=== PATIENT | male | born 1975 | race Caucasian/White ===

== ENCOUNTER 2021-08-08 11:34 | Emergency (ER) | payer BC ==
[2021-08-08] MEDS ORDERED: Sodium Chloride 0.9% 10 ML Syringe FLUSH PRN (12:01)
[2021-08-08] MEDS ORDERED: Ondansetron 4 MG/2 ML SDV IVPUSH ONE (12:01)
--- NOTE | 2021-08-08 12:10 | EDM.PDOC ---
ED HPI GENERAL MEDICAL PROBLEM - General Chief Complaint: Abdominal Pain Stated Complaint: ABDOMINAL PAIN Time Seen by Provider: 08/08/21 11:43 Source of Information: Reports: Patient, RN Notes Reviewed, Significant Other History Limitations: Reports: No Limitations - History of Present Illness INITIAL COMMENTS - FREE TEXT/NARRATIVE: Patient is a 45-year-old male who presents to the ER for evaluation of his abdominal pain/discomfort. States that this is been ongoing for the last few days, it seems to kind to come and go. States that he has some abdominal discomfort in his upper abdomen where he "says his stomach just does not feel right". Does not seem to radiate anywhere, nothing really seems to make it worse but he states when he lays flat it seems to make it better. Does not characterize any foods that aggravate this. No one else is sick like this in the home. Not had any exposure to any other sick people not having any fevers or chills, cough or shortness of breath. Not having any diarrhea. Patient states that he has not had any abdominal surgeries. He is a diabetic and takes Metformin. Not felt pain like this or discomfort like this before ever. He did have one episode of nausea and vomiting this morning. The patient's states that he is not really been eating like he typically does, but she does also realize that his abdomen has some slight general distention. Primary care provider is Rosy Canseco. Middle Abdomen Pain Score (Numeric/FACES): 8 - Related Data Allergies Allergy/AdvReac Type Severity Reaction Status Date / Time oxaprozin [From Daypro] Allergy Airway Verified 08/08/21 11:45 Tightness Home Meds: Home Meds Albuterol [Ventolin HFA] 2 puff INH ASDIRECTED 05/11/18 [History] Omeprazole Magnesium [Prilosec Otc] 20 mg PO DAILY 05/11/18 [History] Hydrocodone/Acetaminophen [HYDROcodone-Acetaminophen 5-325 MG] 1 each PO Q6H PRN #20 tablet 08/08/21 [Rx] Ondansetron [Zofran ODT] 4 mg PO Q8H PRN #15 tab.dis 08/08/21 [Rx] Tamsulosin [Tamsulosin 24 Hr] 0.4 mg PO BID #28 cap.er 08/08/21 [Rx] Past Medical History Respiratory History: Reports: Asthma, Other (See Below) Other Respiratory History: harsh breathing and snores alot- is to have sleep s tudy done soon; seasonal allergies Gastrointestinal History: Reports: GERD - Past Surgical History HEENT Surgical History: Reports: Tonsillectomy Social & Family History - Tobacco Use Tobacco Use Status *Q: Current Every Day Tobacco User Years of Tobacco use: 30 Packs/Tins Daily: 1 - Caffeine Use Caffeine Use: Reports: Coffee, Energy Drinks, Soda, Tea - Recreational Drug Use Recreational Drug Use: No ED ROS GENERAL - Review of Systems Review Of Systems: Comprehensive ROS is negative, except as noted in HPI. ED EXAM, GI/ABD - Physical Exam Exam: See Below Exam Limited By: No Limitations General Appearance: Alert, WD/WN, No Apparent Distress Respiratory/Chest: No Respiratory Distress, Lungs Clear, Normal Breath Sounds, No Accessory Muscle Use, Chest Non-Tender Cardiovascular: Normal Peripheral Pulses, Regular Rate, Rhythm, No Edema GI/Abdominal Exam: Normal Bowel Sounds, Soft, No Distention, No Mass, Tender (Upper abdomen and right side abdomen mainly) Extremities: Normal Inspection, Normal Capillary Refill Neurological: Alert, Oriented, Normal Cognition, No Motor/Sensory Deficits Psychiatric: Normal Affect, Normal Mood Skin Exam: Warm, Dry, Intact, Normal Color, No Rash Course - Vital Signs Last Recorded V/S: Last Vital Signs Temp 97.4 F 08/08/21 11:43 Pulse 73 08/08/21 11:43 Resp 16 08/08/21 11:43 BP 162/84 H 08/08/21 11:43 Pulse Ox 96 08/08/21 11:43 - Orders/Labs/Meds Orders: Active Orders 24 hr Category Date Time Status Abdomen Pelvis w Cont [CT] Stat Exams 08/08/21 12:01 Taken CULTURE URINE [MREF] Urgent Lab 08/08/21 13:19 Received Peripheral IV Insertion Adult [OM.PC] Stat Oth 08/08/21 12:01 Ordered Labs: Laboratory Tests 08/08/21 08/08/21 08/08/21 Range/Units 12:36 12:36 13:19 WBC 11.27 H (4.23-9.07) K/mm3 RBC 4.61 L (4.63-6.08) M/mm3 Hgb 15.0 (13.7-17.5) gm/dl Hct 43.4 (40.1-51.0) % MCV 94.1 H (79.0-92.2) fl MCH 32.5 H (25.7-32.2) pg MCHC 34.6 (32.2-35.5) g/dl RDW Std Deviation 41.5 (35.1-43.9) fL Plt Count 246 (163-337) K/mm3 MPV 9.3 L (9.4-12.3) fl Neut % (Auto) 70.1 H (34.0-67.9) % Lymph % (Auto) 19.3 L (21.8-53.1) % [place] % (Auto) 8.8 (5.3-12.2) % Eos % (Auto) 1.0 (0.8-7.0) Baso % (Auto) 0.4 (0.1-1.2) % Neut # (Auto) 7.91 H (1.78-5.38) K/mm3 Lymph # (Auto) 2.18 (1.32-3.57) K/mm3 [place] # (Auto) 0.99 H (0.30-0.82) K/mm3 Eos # (Auto) 0.11 (0.04-0.54) K/mm3 Baso # (Auto) 0.04 (0.01-0.08) K/mm3 Sodium 140 (136-145) mEq/L Potassium 4.1 (3.5-5.1) mEq/L Chloride 103 (98-107) mEq/L Carbon Dioxide 26 (21-32) mEq/L Anion Gap 15.1 H (5-15) BUN 20 H (7-18) mg/dL Creatinine 1.5 H (0.7-1.3) mg/dL Est Cr Clr Drug Dosing 67.54 mL/min Estimated GFR (MDRD) 50 (>60) mL/min BUN/Creatinine Ratio 13.3 L (14-18) Glucose 112 H (70-99) mg/dL Calcium 9.7 (8.5-10.1) mg/dL Total Bilirubin 0.4 (0.2-1.0) mg/dL GGT 36 (15-85) U/L AST 25 (15-37) U/L ALT 35 (16-63) U/L Alkaline Phosphatase 46 (46-116) U/L C-Reactive Protein < 0.2 (<1.0) mg/dL Total Protein 7.1 (6.4-8.2) g/dl Albumin 4.0 (3.4-5.0) g/dl Globulin 3.1 gm/dL Albumin/Globulin Ratio 1.3 (1-2) Lipase 144 (73-393) U/L Urine Color Yellow (Yellow) Urine Appearance Clear (Clear) Urine pH 8.5 H (5.0-8.0) Ur Specific [place] 1.020 (1.005-1.030) Urine Protein Negative (Negative) Urine Glucose (UA) Negative (Negative) Urine Ketones Negative (Negative) Urine Occult Blood 1+ H (Negative) Urine Nitrite Negative (Negative) Urine Bilirubin Negative (Negative) Urine Urobilinogen 1.0 (0.2-1.0) Ur Leukocyte Esterase Trace H (Negative) Urine RBC 5-10 H (0-5) /hpf Urine WBC 0-5 (0-5) /hpf Ur Squamous Epith Cells 0-5 (0-5) /hpf Urine Bacteria Few (FEW) /hpf Urine Mucus Few (FEW) /hpf Meds: Medications Discontinued Medications Generic Name Dose Route Start Last Admin Trade Name Freq PRN Reason Stop Dose Admin Diatrizoate Meglum/Diatrizoate Sod 60 ml 08/08/21 13:46 08/08/21 13:59 Diatrizoate Meglumine/Diatrizoate Sodium 37% 120 Ml Bottle PO 08/08/21 13:47 60 ml ONETIME ONE Administration Sodium Chloride 1,000 mls @ 999 mls/hr 08/08/21 12:15 08/08/21 12:39 Normal Saline IV 999 mls/hr ASDIRECTED AINSLEY Administration Iopamidol 100 ml 08/08/21 13:46 08/08/21 13:59 Iopamidol 612 Mg/Ml 100 Ml Bottle IVPUSH 08/08/21 13:47 100 ml ONETIME ONE Administration Iopamidol 25 ml 08/08/21 13:46 08/08/21 13:59 Iopamidol 612 Mg/Ml 50 Ml Sdv IVPUSH 08/08/21 13:47 25 ml ONETIME ONE Administration Ondansetron HCl 4 mg 08/08/21 12:01 08/08/21 12:37 Ondansetron 4 Mg/2 Ml Sdv IVPUSH 08/08/21 12:02 4 mg ONETIME ONE Administration Sodium Chloride 10 ml 08/08/21 12:01 08/08/21 12:46 Sodium Chloride 0.9% 10 Ml Syringe FLUSH 10 ml ASDIRECTED PRN Administration Keep Vein Open - Re-Assessments/Exams Free Text/Narrative Re-Assessment/Exam: 08/08/21 12:09 Patient presents to the ER for evaluation of his abdominal pain. We will get an IV give him some fluids and nausea meds, and do abdomen pelvis CT along with some blood work. Patient does have a history of GERD. 08/08/21 15:31 Patient's white count mildly elevated at 11.27 with 70% neutrophils. CMP essentially unremarkable but he does have slightly elevated creatinine of 1.5, GFR slightly low at 50. CRP is undetectably low. The patient's CT did demonstrate a possible 6.1 mm stone within the left proximal ureter some evidence of gastritis, there was an incidental finding of some lucencies within the posterior pleural spaces bilaterally, which could represent retraction from scarring or tiny unusual appearing dependent pneumothoraces patient's not hypoxic or have any sort of shortness of breath, I do not believe this is highly likely. I did call Dr. Dean in consultation with this patient due to his slight renal insufficiency and elevated white count and he states that the patient can go home, keep hydrated he should take Flomax 2 times a day for the next 2 weeks, get some painkillers for pain management and follow-up with his p rimary care and urology. Patient verbalized understanding of this plan. Departure - Departure Time of Disposition: 15:33 Disposition: Home, Self-Care 01 Condition: Good Clinical Impression: Kidney stone on left side Gastritis Qualifiers: Gastritis type: unspecified gastritis Chronicity: acute Gastritis bleeding: without bleeding Qualified Code(s): K29.00 - Acute gastritis without bleeding - Discharge Information *PRESCRIPTION DRUG MONITORING PROGRAM REVIEWED*: Yes *COPY OF PRESCRIPTION DRUG MONITORING REPORT IN PATIENT BRAULIO: No Prescriptions: Tamsulosin [Tamsulosin 24 Hr] 0.4 mg PO BID #28 cap.er Hydrocodone/Acetaminophen [HYDROcodone-Acetaminophen 5-325 MG] 1 each PO Q6H PRN #20 tablet PRN Reason: Pain Ondansetron [Zofran ODT] 4 mg PO Q8H PRN #15 tab.dis PRN Reason: Nausea Instructions: Gastritis, Adult, [id number], Kidney Stones, [id number] Referrals: Rosy Canseco NP [Primary Care Provider] - Nathen Scott MD [Ordering Only Provider] - Forms: ED Department Discharge Additional Instructions: You were evaluated in the ER today for your abdomen pain. You had some labs and a CT done at today's visit, all of which are consistent with a left-sided partially obstructed kidney stone. Management for this will be pain management, nausea management and hydration. You have been given a few different medications for management. One will be Flomax you need to take 1 tablet 2 times a day for the next 2 weeks, or until you have the stone visually passed through the strainer. Second medication is oral Zofran you may take 1 tablet dissolvable on your tongue every 8 hours as needed for ongoing nausea. You were given a prescription for a strong pain medication, hydrocodone/acetaminophen 5/325 mg, please take 1 tab every 6 hours as needed for pain not relieved by Tylenol or ibuprofen alone. Please note this medication does contain Tylenol in it, so do not take more than 4000 mg in a 24- hour time span. These medications can be addictive, so please take as few as possible to achieve adequate pain control. These meds can also be quite constipating, recommend that you increase your oral fluid intake and take a stool softener like MiraLAX while taking these medications. Do not drive while taking this medication. This medication was electronically sent to the [facility] located near [facility]. You may take 500 mg Tylenol (acetaminophen) or 600 mg ibuprofen (Advil, Motrin) every 6 hours as needed for ongoing pain management. Do not exceed 4000 mg Tylenol or 3200 mg ibuprofen in a 24-hour time span. Recommend that you follow-up with your primary care provider on Tuesday, to have your labs repeated to check on your kidneys, and so that they can pass on a u rological referral for ongoing management of your kidney stone. Please return to the ED if your symptoms change or worsen. Sepsis Event Note (ED) - Evaluation Sepsis Screening Result: No Definite Risk - Focused Exam Vital Signs: Vital Signs Temp Pulse Resp BP Pulse Ox 08/08/21 11:43 97.4 F 73 16 162/84 H 96 - My Orders Last 24 Hours: My Active Orders 08/08/21 12:01 Abdomen Pelvis w Cont [CT] Stat Peripheral IV Insertion Adult [OM.PC] Stat 08/08/21 13:19 CULTURE URINE [MREF] Urgent - Assessment/Plan Last 24 Hours: My Active Orders 08/08/21 12:01 Abdomen Pelvis w Cont [CT] Stat Peripheral IV Insertion Adult [OM.PC] Stat 08/08/21 13:19 CULTURE URINE [MREF] Urgent
[2021-08-08] MEDS ORDERED: Sodium Chloride 0.9% 1,000 ML IV SCH (12:15)
[2021-08-08] MEDS ORDERED: Iopamidol 612 MG/ML 100 ML Bottle IVPUSH ONE (13:46)
[2021-08-08] MEDS ORDERED: Diatrizoate Meglumine/Diatrizoate Sodium 37% 120 ML Bottle PO ONE (13:46)
[2021-08-08] MEDS ORDERED: Iopamidol 612 MG/ML 50 ML SDV IVPUSH ONE (13:46)
--- NOTE | 2021-08-09 14:51 | CT ---
CT abdomen and pelvis Technique: Multiple axial sections were obtained from above the dome of the diaphragm inferiorly through the pubic symphysis. Intravenous and oral contrast were utilized. Delayed images were also obtained through the bladder. Reconstructed coronal and sagittal images were also obtained. Comparison: No prior abdominal imaging is available. Findings: There is an obstructing calculus being seen within the proximal to mid left ureter which measures approximately 5.7 mm. This causes dilatation of the proximal collecting system. No other ureteral calculi are seen. Delayed images show contrast within the distal right ureter and the bladder. No contrast is seen within the left ureter. Minimal density is seen posteriorly within both lung bases most likely representing slight atelectasis. Stomach wall is slightly prominent which is most likely not distended Liver shows fatty infiltration. Spleen size is normal. Gallbladder contains no calcified gallstones. Adrenal glands show no nodule. Pancreas shows no discrete abnormality. Abdominal aorta shows mild atherosclerotic calcification. No aneurysm is seen. No retroperitoneal adenopathy or mesenteric abnormalities are seen. No pelvic mass or adenopathy is seen. Calcification is seen within the prostate gland. Minimal fat-containing umbilical hernia is noted. Bone window settings were reviewed which show disc space narrowing at L5-S1 with vacuum disc phenomena. No acute bony abnormality is appreciated. Impression: 1. Stone within the mid to proximal mid left ureter measuring approximately 5.7 mm. This causes proximal hydronephrosis. 2. Other chronic findings as noted above. Diagnostic code #3 I agree with preliminary report from [facility], finalized on 08/08/21, 3:56 PM [employer], code 1
== END 2021-08-08 13:55 | disposition home or self-care (01) ==
LOC: JD.ED 11:34
DX: N13.2 Hydronephrosis with renal and ureteral calculous obstruction (principal); K29.00 Acute gastritis without bleeding; K21.9 Gastro-esophageal reflux disease without esophagitis; Z88.8 Allergy status to other drugs, medicaments and biological substances; Z72.0 Tobacco use; Z79.899 Other long term (current) drug therapy
CPT/HCPCS: 36415; 74177; 80053; 81001; 82977; 83690; 85025; 86140; 87086; 96374; 99284; J2405; J7030; Q9963; Q9967

== ENCOUNTER 2024-04-10 10:00 | Inpatient (IN) | payer BC, OTHER ==
[2024-04-10] MEDS: Sodium Chloride 0.9% 1,000 ML IV ONE (11:15)
[2024-04-10] MEDS: Sodium Chloride 0.9% 10 ML Syringe FLUSH PRN (11:16)
[2024-04-10 11:18] LABS: BASOPHILS PERCENT AUTO 0.2 % (0.0-1.0); EOSINOPHILS ABSOLUTE AUTO 0.7 K/mm3 (0.0-0.4); HEMATOCRIT 45.8 % (42.0-52.0); HEMOGLOBIN 16.3 gm/dl (14.0-18.0); IMMATURE GRAN ABSOLUTE AUTO 0.05 K/mm3 (0.00-0.05); IMMATURE GRAN PERCENT AUTO 0.4 % (0.0-0.4); LYMPHOCYTES ABSOLUTE AUTO 1.9 K/mm3 (1.0-4.8); LYMPHOCYTES PERCENT AUTO 14.1 % (24.0-44.0); MEAN CORPUSCULAR HEMOGLOBIN 32.1 pg (28.0-32.0); MEAN CORPUSCULAR HGB CONC 35.6 g/dl (32.0-36.0); MEAN CORPUSCULAR VOLUME 90.2 fl (83.0-99.0); MEAN PLATELET VOLUME 9.4 fl (9.4-12.4); MONOCYTES ABSOLUTE AUTO 0.6 K/mm3 (0.0-0.8); MONOCYTES PERCENT AUTO 4.4 % (0.0-8.0); NEUTROPHILS PERCENT AUTO 75.9 % (41.0-71.0); PLATELET COUNT,PLT 287 K/mm3 (150-400); RED BLOOD CELL COUNT 5.08 M/mm3 (4.52-5.90); WHITE BLOOD CELL COUNT,WBC 13.19 K/mm3 (3.9-11.3)
[2024-04-10 11:40] LABS: A/G RATIO 1.2 (1-2); ALANINE AMINOTRANSFERASE,ALT 29 U/L (16-63); ALBUMIN 4.2 g/dl (3.4-5.0); ALKALINE PHOSPHATASE 30 U/L (46-116); ANION GAP 16.3 (5-15); ASPARTATE AMNIOTRANSFERASE,AST 18 U/L (15-37); BILIRUBIN TOTAL 0.6 mg/dL (0.2-1.0); BLOOD UREA NITROGEN,BUN 38 mg/dL (7-18); CALCIUM 9.6 mg/dL (8.5-10.1); CARBON DIOXIDE,CO2 27 mEq/L (21-32); CHLORIDE,CL 93 mEq/L (98-107); EST CRCL DRUG DOSING (CG) 49.04 mL/min; ESTIMATED GFR 40 mL/min (>60); GLUCOSE RANDOM 188 mg/dL (70-99); LIPASE 37 U/L (16-77); MAGNESIUM 1.8 mg/dL (1.8-2.4); POTASSIUM,K 3.3 mEq/L (3.5-5.1); PROTEIN TOTAL,TP 7.8 g/dl (6.4-8.2); SODIUM,NA 133 mEq/L (136-145); TROPONIN I HIGH SENSITIVITY < 4 pg/mL (<=76)
[2024-04-10] MEDS: Iopamidol 755 Mg/ML 100 ML Bottle IVPUSH ONE (11:58)
[2024-04-10] MEDS ORDERED: Sodium Chloride 0.9% 100 ML IV SCH (12:00)
[2024-04-10 12:28] LABS: CORONAVIRUS COVID-19 NAA NEGATIVE (NEGATIVE); INFLUENZA A NAA NEGATIVE (NEGATIVE); RESPIRATORY SYNCYTIAL VIR NAA NEGATIVE (NEGATIVE)
[2024-04-10 12:55] LABS: APPEARANCE,URINE CLEAR (Clear); BILIRUBIN,URINE NEGATIVE (Negative); COLOR,URINE YELLOW (Yellow); GLUCOSE,URINE NEGATIVE (Negative); KETONES,URINE NEGATIVE (Negative); LEUKOCYTE ESTERASE,URINE NEGATIVE (Negative); NITRITE,URINE NEGATIVE (Negative); OCCULT BLOOD,URINE NEGATIVE (Negative); PROTEIN,URINE 1+ (Negative)
[2024-04-10 14:26] LABS: BACTERIA,URINE FEW /hpf (FEW); CALCIUM OXALATE CRYSTALS,URINE MODERATE; MUCUS,URINE FEW /hpf (FEW); RBC,URINE 0-5 /hpf (0-5); SQUAMOUS EPITHELIAL CELLS,UR 0-5 /hpf (0-5)
[2024-04-10] MEDS: Aspirin 81 MG Tab.Chew PO ONE (17:20)
[2024-04-10] MEDS: Magnesium Oxide 400 MG Tab PO ONE (17:21)
[2024-04-10] MEDS: Potassium Chloride 20 MEQ Tab.ER PO ONE (17:22)
[2024-04-10] MEDS: Potassium Chloride 10 MEQ in Premix Bag 1 BAG IV ONE (17:22)
[2024-04-10 17:27] LABS: T4 FREE 1.06 ng/dL (0.76-1.46); TSH 1.919 uIU/mL (0.358-3.74)
[2024-04-10] MEDS: Magnesium Sulfate/Water 2 GM in Premix Bag 1 BAG IV ONE (17:33)
[2024-04-10] MEDS: Sodium Chloride 0.9% 250 ML ONE (17:33)
[2024-04-10] MEDS: Sodium Chloride 0.9% 250 ML IV SCH (17:35)
[2024-04-10] MEDS: Magnesium Sulfate (4.06 MEQ/ML) 5 GM/10 ML SDV IV ONE (17:42)
[2024-04-10] MEDS ORDERED: Acetaminophen 325 MG Tab PO PRN (18:57)
[2024-04-10] MEDS ORDERED: Ondansetron 4 MG Tab.DIS PO PRN (18:57)
[2024-04-10] MEDS ORDERED: Albuterol/Ipratropium 3.0-0.5 MG/3 ML Neb Soln NEB PRN (18:57)
[2024-04-10] MEDS ORDERED: Morphine 2 MG/ML SYRINGE IVPUSH PRN (18:57)
[2024-04-10] MEDS ORDERED: oxyCODONE 5 MG Tab PO PRN (18:57)
[2024-04-10] MEDS ORDERED: Sodium Chloride 0.9% 1,000 ML IV SCH (19:00)
[2024-04-10] MEDS: Formoterol/Mometasone 200-5 MCG 8.8 GM Inhaler INH SCH (20:32)
[2024-04-10] MEDS: Sodium Chloride 0.9% 1,000 ML IV SCH (21:19)
[2024-04-11 04:56] LABS: HEMATOCRIT 40.7 % (42.0-52.0); HEMOGLOBIN 14.4 gm/dl (14.0-18.0); MEAN CORPUSCULAR HEMOGLOBIN 32.4 pg (28.0-32.0); MEAN CORPUSCULAR HGB CONC 35.4 g/dl (32.0-36.0); MEAN CORPUSCULAR VOLUME 91.5 fl (83.0-99.0); MEAN PLATELET VOLUME 9.5 fl (9.4-12.4); PLATELET COUNT,PLT 221 K/mm3 (150-400); RED BLOOD CELL COUNT 4.45 M/mm3 (4.52-5.90); WHITE BLOOD CELL COUNT,WBC 12.52 K/mm3 (3.9-11.3)
[2024-04-11 05:14] LABS: ANION GAP 11.7 (5-15); BUN/CREATININE RATIO 23.6 (14-18); CALCIUM 8.7 mg/dL (8.5-10.1); CREATININE 1.1 mg/dL (0.7-1.3); EST CRCL DRUG DOSING (CG) 89.16 mL/min; POTASSIUM,K 3.7 mEq/L (3.5-5.1)
[2024-04-11] MEDS: Insulin Lispro 100 Unit/ML 3 ML KwikPen SUBCUT SCH (07:25)
[2024-04-11] MEDS: Enoxaparin 40 MG/0.4 ML Syringe SUBCUT SCH (08:51)
[2024-04-11] MEDS: Potassium Chloride 20 MEQ Tab.ER PO ONE (08:51)
[2024-04-11] MEDS: Nicotine 21 MG/24 Hr Patch TRDERM SCH (08:51)
== END 2024-04-11 15:24 | disposition home or self-care (01) | DRG 683 ==
LOC: JD.ED 10:00 → JD.MS 17:13
PROVIDERS: ADMIT Family Medicine; ATTEND Family Medicine
DX: N17.9 Acute kidney failure, unspecified (principal); E87.1 Hypo-osmolality and hyponatremia; E86.1 Hypovolemia; E87.8 Other disorders of electrolyte and fluid balance, not elsewhere classified; E86.0 Dehydration; I10 Essential (primary) hypertension; J45.909 Unspecified asthma, uncomplicated; K21.9 Gastro-esophageal reflux disease without esophagitis; E87.6 Hypokalemia; E11.65 Type 2 diabetes mellitus with hyperglycemia; Z88.1 Allergy status to other antibiotic agents; Z79.84 Long term (current) use of oral hypoglycemic drugs; Z90.49 Acquired absence of other specified parts of digestive tract; Z79.899 Other long term (current) drug therapy
CPT/HCPCS: 0241U; 36415; 70450; 70450-26; 71275; 71275-26; 72125; 72125-26; 80048; 80053; 81001; 82947; 83690; 83735; 83880; 84439; 84443; 84484; 85025; 85027; 85379; 93005; 93010; 93306; 93880; 93880-26; 94640; 94660; 94760; 94761; 96360; 99285; 99285-25; A9270-GY; J1650; J3475; J3480; J3490; J7030; J7050; Q9967

== ENCOUNTER 2024-04-15 19:20 | Emergency (ER) | payer OTHER ==
[2024-04-15] MEDS: Sodium Chloride 0.9% 1,000 ML IV ONE (20:04)
[2024-04-15] MEDS: Sodium Chloride 0.9% 10 ML Syringe FLUSH PRN (20:05)
[2024-04-15 20:06] LABS: BASOPHILS ABSOLUTE AUTO 0.1 K/mm3 (0.0-0.2); BASOPHILS PERCENT AUTO 0.8 % (0.0-1.0); EOSINOPHILS ABSOLUTE AUTO 1.5 K/mm3 (0.0-0.4); EOSINOPHILS PERCENT AUTO 8.7 % (0.0-6.0); HEMATOCRIT 48.3 % (42.0-52.0); IMMATURE GRAN ABSOLUTE AUTO 0.11 K/mm3 (0.00-0.05); IMMATURE GRAN PERCENT AUTO 0.7 % (0.0-0.4); LYMPHOCYTES ABSOLUTE AUTO 3.1 K/mm3 (1.0-4.8); LYMPHOCYTES PERCENT AUTO 18.5 % (24.0-44.0); MEAN CORPUSCULAR HGB CONC 35.6 g/dl (32.0-36.0); MEAN CORPUSCULAR VOLUME 89.8 fl (83.0-99.0); MEAN PLATELET VOLUME 9.4 fl (9.4-12.4); MONOCYTES ABSOLUTE AUTO 1.1 K/mm3 (0.0-0.8); MONOCYTES PERCENT AUTO 6.4 % (0.0-8.0); NEUTROPHILS ABSOLUTE AUTO 10.9 K/mm3 (1.8-7.7); NEUTROPHILS PERCENT AUTO 64.9 % (41.0-71.0); PLATELET COUNT,PLT 281 K/mm3 (150-400); RED BLOOD CELL COUNT 5.38 M/mm3 (4.52-5.90); WHITE BLOOD CELL COUNT,WBC 16.76 K/mm3 (3.9-11.3)
[2024-04-15 20:10] LABS: HEMOGLOBIN 17.2 gm/dl (14.0-18.0)
[2024-04-15 20:11] LABS: A/G RATIO 1.2 (1-2); ALBUMIN 4.2 g/dl (3.4-5.0); ANION GAP 15.7 (5-15); BILIRUBIN TOTAL 0.4 mg/dL (0.2-1.0); BUN/CREATININE RATIO 16.2 (14-18); CALCIUM 10.6 mg/dL (8.5-10.1); CREATININE 1.3 mg/dL (0.7-1.3); EST CRCL DRUG DOSING (CG) 75.44 mL/min; MAGNESIUM 1.9 mg/dL (1.8-2.4); POTASSIUM,K 3.7 mEq/L (3.5-5.1); PROTEIN TOTAL,TP 7.8 g/dl (6.4-8.2)
[2024-04-15] MEDS: Iopamidol 612 MG/ML 100 ML Bottle IVPUSH ONE (20:15)
[2024-04-15 21:20] LABS: APPEARANCE,URINE CLEAR (Clear); BILIRUBIN,URINE NEGATIVE (Negative); COLOR,URINE YELLOW (Yellow); GLUCOSE,URINE NEGATIVE (Negative); KETONES,URINE NEGATIVE (Negative); LEUKOCYTE ESTERASE,URINE NEGATIVE (Negative); NITRITE,URINE NEGATIVE (Negative); OCCULT BLOOD,URINE NEGATIVE (Negative); PROTEIN,URINE NEGATIVE (Negative)
[2024-04-15 22:22] LABS: CORONAVIRUS COVID-19 NAA NEGATIVE (NEGATIVE); INFLUENZA A NAA NEGATIVE (NEGATIVE); RESPIRATORY SYNCYTIAL VIR NAA NEGATIVE (NEGATIVE)
== END 2024-04-15 23:01 | disposition home or self-care (01) ==
LOC: JD.ED 19:20
DX: R10.13 Epigastric pain (principal); R11.2 Nausea with vomiting, unspecified; I10 Essential (primary) hypertension; E78.00 Pure hypercholesterolemia, unspecified; K21.9 Gastro-esophageal reflux disease without esophagitis; E11.9 Type 2 diabetes mellitus without complications; F17.210 Nicotine dependence, cigarettes, uncomplicated; Z86.16 Personal history of COVID-19; Z79.84 Long term (current) use of oral hypoglycemic drugs; Z79.899 Other long term (current) drug therapy; Z88.6 Allergy status to analgesic agent
CPT/HCPCS: 0241U; 36415; 74177; 80053; 81003; 83690; 83735; 84484; 85025; 93005; 96360; 99284; J3490; J7030; Q9967